=== PATIENT | female | born 1965 | race Hispanic/Latino ===

== ENCOUNTER 2019-12-09 18:13 | Emergency (ER) | payer OTHER ==
[~2019-12-09] VITALS: Ht 165.1 cm; Wt 87.5 kg
[2019-12-09] MEDS ORDERED: GLUCOPHAGE500 MG PO (18:42)
== END 2019-12-09 21:49 | disposition home or self-care (01) ==
LOC: ED 18:13
DX: R10.9 Unspecified abdominal pain (principal); E11.9 Type 2 diabetes mellitus without complications; Z79.84 Long term (current) use of oral hypoglycemic drugs
CPT/HCPCS: 74176; 80053; 81001; 83690; 85025; 99284-25